=== PATIENT | male | born 1965 | race Caucasian/White ===

== ENCOUNTER → 2017-09-14 | Day surgery (SDC) | payer OTHER ==
[~2017-09-14] VITALS: Ht 182.9 cm; Wt 95.3 kg
[~2017-09-14] MED LIST: AMLODIPINE BESYL5 M1 PO; ATORVASTATIN CA10 M1 PO; DHEA50 MG PO; ENDOCET 5-3251 EACH PO; LISINOPRIL40 M1 PO; METFORMIN HCL500 M3 PO; ONDANSETRON HCL4 MG PO; PROBIOTIC1 EACH PO; VENLAFAXINE HC150 MG PO; VITAMIN C1000 M4 PO
--- NOTE | 2017-09-14 10:47 | ED GI/GU/ABDOMINAL COMPLAINT ---
History of Present Illness General Chief Complaint: Abdominal Pain/Flank Pain Stated Complaint: L SIDE ABD PAIN Source: patient, family Exam Limitations: no limitations Vital Signs & Intake/Output Vital Signs & Intake/Output ED Intake and Output 09/15 0000 09/14 1200 Intake Total 0 Output Total Balance 0 Intake, Oral 0 Patient 95.254 kg Weight Weight Reported by Patient Measurement Method Allergies Coded Allergies: No Known Allergies (09/14/17) Reconcile Medications Amlodipine Besylate 5 MG TABLET 1 TAB PO DAILY HTN (Reported) Atorvastatin Calcium 10 MG TABLET 1 TAB PO DAILY CHOLESTEROL (Reported) Lisinopril 40 MG TABLET 1 TAB PO DAILY HTN (Reported) Metformin HCl 500 MG TABLET 1 TAB PO DAILY DM (Reported) Venlafaxine HCl (Venlafaxine HCl ER) 150 MG CAP.ER.24H 1 CAP PO DAILY MENTAL HEALTH (Reported) Triage Note: 52 YO MALE TO TRIAGE FOR EVAL OF LLQ PAIN SINCE FRIDAY. STATES THE PAIN COMES AND GOES AND GETS VERY SHARP IN NATURE WHEN THE PAIN COMES. STATES HE WAS IN [place] AND CAME HOME LAST PM. STATES HE WENT TO THE HOSPITAL IN [facility] AND THEY SAID HE HAD AN ELVATED WBC AND AND US THAT SHOWED ?DIVERLITULITIS VS. CONSTIPATION. STATES HE HASNT HAD A BOWEL MOVMENT SINCE FRIDAY WHEN THE PAIN STARTED BUT STATES HE HASNT BEEN EATING OR DRINKING. STATES +NAUSEA. DENIES URIANRY S/S. Triage Nurses Notes Reviewed? yes HPI: 52M PMH HTN, HLD with 3 day history of severe intermittent LLQ pain. Was on vacation in [place] when it started, [facility] did ultrasound which was negative. Pain is 10/10, non-radiating, lasts for 30 min-hour, occurs several times per day. No prior history of similar. Denies fever, chills, n/v/d, constipation, chest pain, SOB, lightheadedness, abdominal pain, flank pain, dysuria, hematuria. Past History Travel History Traveled to [place] past 21 day No Medical History Any Pertinent Medical History? see below for history Cardiovascular: hypertension, hyperlipidemia Endocrine: diabetes Surgical History Surgical History: none Psychosocial History What is your primary language Romansh Tobacco Use: Never used Family History Hx Contributory? No Review of Systems Review of Systems Constitutional: Reports: no symptoms. EENTM: Reports: no symptoms. Respiratory: Reports: no symptoms. Cardiovascular: Reports: no symptoms. GI: Reports: no symptoms. Genitourinary: Reports: no symptoms. Musculoskeletal: Reports: no symptoms. Skin: Reports: no symptoms. Neurological/Psychological: Reports: no symptoms. Hematologic/Endocrine: Reports: no symptoms. Immunologic/Allergic: Reports: no symptoms. All Other Systems: Reviewed and Negative Physical Exam Physical Exam General Appearance: well developed/nourished, mild distress Head: atraumatic, normal appearance Eyes: Bilateral: normal appearance. Ears, Nose, Throat, Mouth: hearing grossly normal, moist mucous membrane Neck: normal inspection, supple, full range of motion Respiratory: normal breath sounds, no respiratory distress Cardiovascular: regular rate/rhythm Gastrointestinal: soft, non-tender Rectal: deferred Back: normal inspection, normal range of motion Extremities: normal range of motion Neurologic/Psych: awake, alert, oriented x 3, normal mood/affect Skin: intact, normal color, warm/dry Core Measures ACS in differential dx? No Sepsis Present: No Sepsis Focused Exam Completed? No Progress Differential Diagnosis: AAA, AMI, appendicitis, biliary colic, bowel obstruction , colon cancer, cholecystitis, diverticulitis, epididymitis, esophageal varices, gastritis, hepatitis, hernia, hemorrhoids, ischemic bowel, inflamm bowel dis, Izabela-Jesus tear, orchitis, pancreatitis, prostatitis, peptic ulcer, PUD/GERD, perforated viscous, pyelonephritis, SBO, STD, testicular torsion, ureterolithiasis, urinary retention, urethritis, UTI/pyelo Plan of Care: Laboratory Tests 09/14/17 1325: Lactic Acid Cancelled Spoke with Dr. Goff, who will take patient to OR for stone removal. Diagnostic Imaging: Viewed by Me: CT Scan. Discussed w/RAD: CT Scan. Radiology Impression: PATIENT: DENYS KELLY PRESENT AGE: 52 PATIENT ACCOUNT NO: [id number] : 65 LOCATION: [facility] ORDERING PHYSICIAN: Leobardo Reyes MD SERVICE DATE: 09/14/17 EXAM TYPE : CAT - CT ABD & PELVIS W/O IV CONTRAS EXAMINATION: CT ABDOMEN AND PELVIS WITHOUT CONTRAST CLINICAL INFORMATION: Left lower quadrant pain and constipation. Evaluate for diverticulitis or kidney stone. COMPARISON: None TECHNIQUE: Multidetector volumetric imaging was performed from the superior aspect of the liver through the pubic symphysis. Sagittal and coronal reformatted images were obtained on the technologist's workstation. DLP: 573 mGy -cm FINDINGS: LUNG BASES: The visualized lung bases are unremarkable. LIVER, GALLBLADDER, AND BILIARY TREE: The liver is normal in size, shape, and attenuation. No focal hepatic lesion or biliary ductal dilatation is present. The gallbladder is unremarkable with no evidence of radiopaque gallstones, gallbladder wall thickening, or obvious pericholecystic inflammatory changes. PANCREAS: Unremarkable. SPLEEN: Unremarkable. ADRENAL GLANDS: Unremarkable. KIDNEYS AND URETERS: The right kidney is normal in shape size and appearance. A 2 mm interpolar calcification is seen at the level of the papilla of the right mid kidney with no evidence of right-sided hydroureter or hydronephrosis. The left kidney is normal in shape and size with mild perinephric stranding compared to the contralateral side. Mild left hydroureteronephrosis is seen with periureteric soft tissue stranding. The hydroureter extends to the ureterovesical junction where there is obstruction of the ureter by a 2 mm calculus. BLADDER: Unremarkable. GASTROINTESTINAL TRACT: The stomach is nondistended. No evidence of small or large bowel obstruction. The appendix is normal. Moderate stool is seen in the colon predominantly on the right side. No evidence of diverticulosis or diverticulitis. ABDOMINAL WALL: No significant hernia is appreciated. LYMPH NODES: Normal. VASCULAR: Unremarkable. PELVIC VISCERA: The prostate and seminal vesicles are unremarkable. OSSEOUS STRUCTURES: Unremarkable. IMPRESSION: 1. Mild left hydroureteronephrosis secondary to acute obstruction by a 2 mm distal ureteral calculus immediately proximal to the ureterovesical junction. 2. Tiny nonobstructive right renal calculus. No evidence of right hydronephrosis. 3. No evidence of bowel wall thickening or diverticulitis. DICTATED BY: Arthur Hahn MD DATE/TIME DICTATED:09/14/171110 BLANCHING MACHINE OPERATOR:SHEFALI DATE/TIME TRANSCRIBED:09/14/171110 CONFIDENTIAL, DO NOT COPY WITHOUT APPROPRIATE AUTHORIZATION. <Electronically signed in Other Vendor System> SIGNED BY: Arthur Hahn MD 09/14/17 1123 Initial ED EKG: none Departure Departure Disposition: STILL A PATIENT Condition: Stable Clinical Impression Primary Impression: Ureterolithiasis Secondary Impressions: Obstructive uropathy Referrals: Imtiaz Omer MD (PCP/Family) Departure Forms: Customer Survey General Discharge Information OR/GI Note Spoke With: Ulises Goff MD ED Treatment Decision: DENYS KELLY requires urgent operative management or an emergent procedure that cannot be performed in the Emergency Room setting. Imtiaz Omer MD (PCP/Family) Departure Forms: Customer Survey General Discharge Information OR/GI Note Spoke With: Ulises Goff MD ED Treatment Decision: DENYS KELLY requires urgent operative management or an emergent procedure that cannot be performed in the Emergency Room setting.
[2017-09-14 11:05] LABS: ABSOLUTE BASOPHIL COUNT 0 /CUMM (0.0-0.2); ABSOLUTE EOSINOPHIL COUNT 0.1 /CUMM (0.0-0.7); ABSOLUTE GRANULOCYTE CT 7.5 /CUMM (1.4-6.5); ABSOLUTE LYMPH COUNT 2.3 /CUMM (1.2-3.4); ABSOLUTE MONOCYTE COUNT 1.7 /CUMM (0.10-0.60); BASOPHIL % 0.4 % (0.0-2.0); EOSINOPHIL % 0.9 % (0-5); GRANULOCYTE % 64.2 % (42.2-75.2); HEMATOCRIT 46.1 % (42-52); MEAN CORPUSCULAR HGB 29.7 PG (27.0-31.0); MEAN CORPUSCULAR VOLUME 87.3 FL (80.0-94.0); MEAN PLATELET VOLUME 6.4 FL (7.4-10.4); PLATELET COUNT 286 /CUMM (130-400); RBC DISTRIBUTION WIDTH 12.8 % (11.5-14.5); RED BLOOD CELL CT 5.28 /CUMM (4.70-6.10); WHITE BLOOD CELL COUNT 11.7 /CUMM (4.8-10.8)
--- NOTE | 2017-09-14 11:23 | CT SCAN REPORT ---
EXAMINATION: CT ABDOMEN AND PELVIS WITHOUT CONTRAST CLINICAL INFORMATION: Left lower quadrant pain and constipation. Evaluate for diverticulitis or kidney stone. COMPARISON: None TECHNIQUE: Multidetector volumetric imaging was performed from the superior aspect of the liver through the pubic symphysis. Sagittal and coronal reformatted images were obtained on the technologist's workstation. DLP: 573 mGy-cm FINDINGS: LUNG BASES: The visualized lung bases are unremarkable. LIVER, GALLBLADDER, AND BILIARY TREE: The liver is normal in size, shape, and attenuation. No focal hepatic lesion or biliary ductal dilatation is present. The gallbladder is unremarkable with no evidence of radiopaque gallstones, gallbladder wall thickening, or obvious pericholecystic inflammatory changes. PANCREAS: Unremarkable. SPLEEN: Unremarkable. ADRENAL GLANDS: Unremarkable. KIDNEYS AND URETERS: The right kidney is normal in shape size and appearance. A 2 mm interpolar calcification is seen at the level of the papilla of the right mid kidney with no evidence of right-sided hydroureter or hydronephrosis. The left kidney is normal in shape and size with mild perinephric stranding compared to the contralateral side. Mild left hydroureteronephrosis is seen with periureteric soft tissue stranding. The hydroureter extends to the ureterovesical junction where there is obstruction of the ureter by a 2 mm calculus. BLADDER: Unremarkable. GASTROINTESTINAL TRACT: The stomach is nondistended. No evidence of small or large bowel obstruction. The appendix is normal. Moderate stool is seen in the colon predominantly on the right side. No evidence of diverticulosis or diverticulitis. ABDOMINAL WALL: No significant hernia is appreciated. LYMPH NODES: Normal. VASCULAR: Unremarkable. PELVIC VISCERA: The prostate and seminal vesicles are unremarkable. OSSEOUS STRUCTURES: Unremarkable. IMPRESSION: 1. Mild left hydroureteronephrosis secondary to acute obstruction by a 2 mm distal ureteral calculus immediately proximal to the ureterovesical junction. 2. Tiny nonobstructive right renal calculus. No evidence of right hydronephrosis. 3. No evidence of bowel wall thickening or diverticulitis.
--- NOTE | 2017-09-14 11:50 | Cons- Urology ---
General Information and HPI Consulting Request Date of Consult: 09/14/17 Requested By: Eric, Reason for Consult: severe left renal colic uncontrolled by IV narcotics. N/V Source of Information: patient, old records Exam Limitations: no limitations History of Present Illness: 52 year old with left renal colic x 1 week while on vacation in [place]. Presents today with worsening pain, nausea, vomitting. Ct with obstructing stone and arf. for stent today as discussed with pt: including procedure with risks/benefits. Allergies/Medications Allergies: Coded Allergies: No Known Allergies (09/14/17) Home Med List: Amlodipine Besylate 5 MG TABLET 1 TAB PO DAILY HTN (Reported) Atorvastatin Calcium 10 MG TABLET 1 TAB PO DAILY CHOLESTEROL (Reported) Lisinopril 40 MG TABLET 1 TAB PO DAILY HTN (Reported) Metformin HCl 500 MG TABLET 1 TAB PO DAILY DM (Reported) Venlafaxine HCl (Venlafaxine HCl ER) 150 MG CAP.ER.24H 1 CAP PO DAILY MENTAL HEALTH (Reported) Current Medications: Current Medications Sig/Kristi Start time Last Medication Dose Route Stop Time Status Admin Ceftriaxone Sodium 1,000 MG ONCE ONE 09/14 1145 AC IV 09/14 1146 Ibuprofen 0 .STK-MED ONE 09/14 1104 DC PO Ibuprofen 400 MG ONCE ONE 09/14 1100 DC 05/ PO 09/14 1101 1100 Morphine Sulfate 0 .STK-MED ONE 09/14 1140 DC .ROUTE Morphine Sulfate 4 MG ONCE ONE 09/14 1130 DC IV 09/14 1131 Sodium Chloride 1,000 ML BOLUS ONE 09/14 1130 AC IV 09/14 1229 Past History Medical History Cardiovascular: hypertension, hyperlipidemia Endocrine: diabetes Psychosocial History Where Do You Live? Home Services at Home: None Primary Language: Czech Functional Ability ADLs Independent: dressing, eating, toileting, bathing. Ambulation: independent IADLs Independent: shopping, housework, finances, food prep, telephone, transportation , medication admin. Employment History Employment: Employed Profession/Employer: construction Retired? no Review of Systems Review of Systems Constitutional: Reports: see HPI, diaphoresis. EENTM: Denies: no symptoms. Cardiovascular: Denies: no symptoms. Respiratory: Denies: no symptoms. GI: Reports: abdominal pain, bloating. Genitourinary: Reports: see HPI. Musculoskeletal: Denies: no symptoms. Skin: Denies: no symptoms. Exam & Diagnostic Data Vital Signs and I&O Vital Signs Date Time Temp Pulse Resp B/P B/P Pulse O2 O2 Flow FiO2 Mean Ox Delivery Rate 09/14 1142 97.8 09/14 1129 Room Air Room Air 09/14 1019 97.8 82 18 146/80 98 Room Air Intake & Output 09/14 1600 09/14 0800 09/14 0000 09/13 1600 09/13 0800 09/13 0000 Intake Total 0 Output Total Balance 0 Intake, Oral 0 Patient 210 lb Weight Weight Reported by Patient Measurement Method Physical Exam General Appearance: well developed/nourished, severe distress Head: atraumatic Eyes: Bilateral: normal appearance. Ears, Nose, Throat: normal pharynx Neck: normal inspection Respiratory: normal breath sounds Cardiovascular: regular rate/rhythm Back: CVA tenderness (L) Extremities: normal inspection Skin: intact Reproductive: Normal male genitalia Last 24 Hours of Labs: Laboratory Tests 09/14 1049 Chemistry Sodium (137 - 145 mmol/L) 141 Potassium (3.5 - 5.1 mmol/L) 4.5 Chloride (98 - 107 mmol/L) 99 Carbon Dioxide (22 - 30 mmol/L) 29 Anion Gap (5 - 16) 12 BUN (9 - 20 mg/dL) 26 H Creatinine (0.7 - 1.2 mg/dL) 1.4 H Estimated GFR (>60 ml/min) 53 L BUN/Creatinine Ratio (7 - 25 %) 18.6 Glucose (65 - 99 mg/dL) 132 H Lactic Acid (0.7 - 2.1 mmol/L) 1.4 Calcium (8.4 - 10.2 mg/dL) 9.4 Total Bilirubin (0.2 - 1.3 mg/dL) 1.5 H AST (17 - 59 U/L) 18 ALT (21 - 72 U/L) 29 Alkaline Phosphatase (< 127 U/L) 49 Total Protein (6.3 - 8.2 g/dL) 8.1 Albumin (3.5 - 5.0 g/dL) 4.5 Globulin (1.9 - 4.2 gm/dL) 3.6 Albumin/Globulin Ratio (1.1 - 2.2 %) 1.3 Lipase (23 - 300 U/L) 224 Hematology CBC w Diff NO MAN DIFF REQ WBC (4.8 - 10.8 /CUMM) 11.7 H RBC (4.70 - 6.10 /CUMM) 5.28 Hgb (14.0 - 18.0 G/DL) 15.7 Hct (42 - 52 %) 46.1 MCV (80.0 - 94.0 FL) 87.3 MCH (27.0 - 31.0 PG) 29.7 MCHC (33.0 - 37.0 G/DL) 34.0 RDW (11.5 - 14.5 %) 12.8 Plt Count (130 - 400 /CUMM) 286 MPV (7.4 - 10.4 FL) 6.4 L Gran % (42.2 - 75.2 %) 64.2 Lymphocytes % (20.5 - 51.1 %) 19.9 L Monocytes % (1.7 - 9.3 %) 14.6 H Eosinophils % (0 - 5 %) 0.9 Basophils % (0.0 - 2.0 %) 0.4 Absolute Granulocytes (1.4 - 6.5 /CUMM) 7.5 H Absolute Lymphocytes (1.2 - 3.4 /CUMM) 2.3 Absolute Monocytes (0.10 - 0.60 /CUMM) 1.7 H Absolute Eosinophils (0.0 - 0.7 /CUMM) 0.1 Absolute Basophils (0.0 - 0.2 /CUMM) 0 Imaging Results: PATIENT: DENYS KELLY PRESENT AGE: 52 PATIENT ACCOUNT NO: [id number] : 65 LOCATION: [facility] ORDERING PHYSICIAN: Leobardo Reyes MD SERVICE DATE: 09/14/17 EXAM TYPE: CAT - CT ABD & PELVIS W/O IV CONTRAS EXAMINATION: CT ABDOMEN AND PELVIS WITHOUT CONTRAST CLINICAL INFORMATION: Left lower quadrant pain and constipation. Evaluate for diverticulitis or kidney stone. COMPARISON: None TECHNIQUE: Multidetector volumetric imaging was performed from the superior aspect of the liver through the pubic symphysis. Sagittal and coronal reformatted images were obtained on the technologist's workstation. DLP: 573 mGy-cm FINDINGS: LUNG BASES: The visualized lung bases are unremarkable. LIVER, GALLBLADDER, AND BILIARY TREE: The liver is normal in size, shape, and attenuation. No focal hepatic lesion or biliary ductal dilatation is present. The gallbladder is unremarkable with no evidence of radiopaque gallstones, gallbladder wall thickening, or obvious pericholecystic inflammatory changes. PANCREAS: Unremarkable. SPLEEN: Unremarkable. ADRENAL GLANDS: Unremarkable. KIDNEYS AND URETERS: The right kidney is normal in shape size and appearance. A 2 mm interpolar calcification is seen at the level of the papilla of the right mid kidney with no evidence of right-sided hydroureter or hydronephrosis. The left kidney is normal in shape and size with mild perinephric stranding compared to the contralateral side. Mild left hydroureteronephrosis is seen with periureteric soft tissue stranding. The hydroureter extends to the ureterovesical junction where there is obstruction of the ureter by a 2 mm calculus. BLADDER: Unremarkable. GASTROINTESTINAL TRACT: The stomach is nondistended. No evidence of small or large bowel obstruction. The appendix is normal. Moderate stool is seen in the colon predominantly on the right side. No evidence of diverticulosis or diverticulitis. ABDOMINAL WALL: No significant hernia is appreciated. LYMPH NODES: Normal. VASCULAR: Unremarkable. PELVIC VISCERA: The prostate and seminal vesicles are unremarkable. OSSEOUS STRUCTURES: Unremarkable. IMPRESSION: 1. Mild left hydroureteronephrosis secondary to acute obstruction by a 2 mm distal ureteral calculus immediately proximal to the ureterovesical junction. 2. Tiny nonobstructive right renal calculus. No evidence of right hydronephrosis. 3. No evidence of bowel wall thickening or diverticulitis. Assessment/Plan Assessment/Plan pt with severe renal colic: ARF and obstructing stone: here for admission and stent. Copies To: Ulises Goff MD Consult Acknowledgment - Thank you for your consult request. Attending MD Review Statement Attending Statement Attending MD Statement: examined this patient, discuss w/resident/PA/MEMBERSHIP SALES ADVISOR Attending Assessment/Plan: ARF with obstructing stone: for stent now.
[2017-09-14 12:19] VITALS: BP 132/78
--- NOTE | 2017-09-14 15:51 | Operative Report ---
Operative/Inv Procedure Report Surgery Date: 09/14/17 Name of Procedure: cystoscopy: LEFT stent insertion with retrograde-fluoro Pre-Operative Diagnosis: left severe colic, hydro, ureter stone. Post-Operative Diagnosis: same Estimated Blood Loss: scant Surgeon/Junior Graphic Designer: MD [place], Ulises-urology Anesthesia: moderate sedation Implants: [id number] stent Complications: none Condition: improved-now pain free Operative/Procedure Note Note: The patient was taken to the operating room placed OR table in supine position. Timeout was performed, with the patient awake, in order to confirm anesthesia, and other pertinent perioperative information. After adequate anesthesia and antibiotics the patient was then placed lithotomy stirrups, draped and prepped in the usual surgical fashion. A 22 Peruvian cystoscope sheath with 30 angle lens was inserted into the urethra, subsequently into the bladder without difficulty. Upon thorough and systematic surveillance, the bladder was noted to be free of tumor, free of stone. Both ureteral orifices were in their orthotopic position with clear efflux from the right side. The left orifice was intubated with a tiger tail catheter. Retrograde pyelogram, with fluoroscopy, was gently performed in order to confirm hydronephrosis, and a 9 mm left ureter filling defect, consistent with stone, and proximal hydronephrosis. The retrograde pyelogram was also helpful in order to map the anatomy of the left ureter and kidney using fluoroscopy. The tiger tail catheter was then removed. The left orifice was then intubated with a 0.035 Glidewire, which was advanced into the left ureter, and renal pelvis, without difficulty, bypassing the left ureter stone. Over this Glidewire a 6 X 24 Bard onlay stent was rail-roaded into the left ureter without difficulty. With the proximal coil of the stent noted in the left renal pelvis, and the distal coil in the bladder, the Glidewire was removed. The stent remained in proper place, confirmed cystoscopically, and fluoroscopically. The bladder was then drained via the cystoscope, which was then removed without difficulty. All sponege needle and instrument count were correct at the end of the case. The patient tolerated the procedure well, and was taken to recovery room in satisfactory condition. Discharge Disposition: PACU CC: Ulises Goff MD
--- NOTE | 2017-09-14 16:06 | RADIOLOGY REPORT ---
EXAMINATION: CR ABDOMEN/INTRAOPERATIVE FLUOROSCOPY CLINICAL INDICATION: Cystogram and left stent placement. COMPARISON: CT scan of the abdomen and pelvis dated 09/14/2017 TECHNIQUE/FINDINGS: Fluoroscopic equipment was dedicated to the operating room for the performance of an intraoperative procedure. Several (6) spot films were acquired and are archived in PACS. Please refer to operative notes for procedural detail. FLUOROSCOPY TIME: 0.3 minutes. IMPRESSION: Administrative dictation for intraoperative fluoroscopy and image archiving in PACS. Please refer to operative notes for details.
== END ==
LOC: ERH 10:16 → STS 12:35 → ERH 15:30
PROVIDERS: Internal Medicine
DX: N13.2 Hydronephrosis with renal and ureteral calculous obstruction (principal); E11.9 Type 2 diabetes mellitus without complications; Z79.84 Long term (current) use of oral hypoglycemic drugs; I10 Essential (primary) hypertension
CPT/HCPCS: 74018; 74176; 96374; 96375; C2617; J0696; J2250

== ENCOUNTER → 2017-09-16 | Day surgery (SDC) | payer OTHER ==
[~2017-09-16] VITALS: Ht 182.9 cm; Wt 95.3 kg
[~2017-09-16] MED LIST changes: -DHEA50 MG PO; -ENDOCET 5-3251 EACH PO; -ONDANSETRON HCL4 MG PO; -PROBIOTIC1 EACH PO; -VITAMIN C1000 M4 PO
--- NOTE | 2017-09-16 09:57 | Operative Report ---
Operative/Inv Procedure Report Surgery Date: 09/16/17 Name of Procedure: left ureter ESWL, cysto-left stent removal. FLuoroscopy Pre-Operative Diagnosis: left ureter stone: left stent Post-Operative Diagnosis: same Estimated Blood Loss: scant Surgeon/Replanting Machine Crew: Ulises Goff MD Anesthesia: moderate sedation Specimens: left stent Complications: none Operative/Procedure Note Note: The patient was taken to the operating room and placed on the ESWL table in supine position. Timeout was performed, with the patient awake, in order to confirm correct patients identity, procedure, laterality, anesthesia, and other pertinent perioperative information. After adequate anesthesia and antibiotics, the patient was then positioned so that the LEFT Flank was overlying the ESWL table's cut-out, above the concussion dome of the shockwave generator. Fluroscopy, as well as renal US, was used to locate the stone, and LEFT stent. Using fluoroscopy with AP, and oblique views, the position of the left renal stone was confirmed and optimized in the c-arm crosshairs. The stone, previously in the ureter, and manipulated into the left renal pelvis, was approximately 9 mm in size, and was visible on fluroscopy. Renal ultrasound was also performed on the left side, confirming the presence of the left stone, and no hydronephrosis, with normal parenchyma, and no solid tumor. Flurosocpy was used in an AP and oblique views to maximize the position of the stone for ESWL. After optimized positioning, ESWL was initiated at low power levels. After noting the patient's tolerance to the shockwaves, the power was maximized. The renal stone was noted to bounce/move with each shockwave with real-time renal US visualization. Toward the end of the procedure, the composition of the left stones had changed significantly, indicating the breaking of the left renal stone. A total of 2500 shockwaves were delivered to the stone. The patient was then placed in a frog-leg position, draped and prepped in the usual surgical fashion. A well lubricated, 22 Libyan cystoscope sheath with 30 angle lens was inserted without difficulty. On entering the bladder the bladder was noted to be free of tumor, and free of stone. Both ureteral orifices were in their ortotopic positions. The left stent was seen in proper place protruding through the left ureter orifice. Using the alligator forcep, under direct visualization, the left stent was grasped. The cystoscope along with entire left stent was then gently removed without difficulty. All sponge, needle, and instrument count were correct at the end of the case. The patient the tolerated both the left cysto/stent removal, and left ESWL procedures well. The patient was awakened, then taken to recovery in satisfactory condition via stretcher. The pt. was dischared with pain meds, diet orders, and intructions to catch fragments with straining the urine. The patient was given requisition to have follow-up renal ultrasound and KUB in 2-4 weeks, prior to follow-up visit in my office. Findings: 9mm stone in left renal pelvis shattered at 2500 Discharge Disposition: Same Day Admissions CC: [place] ZURITA,Ulises
== END ==
LOC: STS 02:24
DX: N20.1 Calculus of ureter (principal); E11.9 Type 2 diabetes mellitus without complications; Z79.84 Long term (current) use of oral hypoglycemic drugs; I10 Essential (primary) hypertension

== ENCOUNTER → 2017-10-16 | Day surgery (SDC) | payer OTHER ==
[~2017-10-16] MED LIST changes: +DHEA50 MG PO; +ENDOCET 5-3251 EACH PO; +ONDANSETRON HCL4 MG PO; +PROBIOTIC1 EACH PO; +VITAMIN C1000 M4 PO
--- NOTE | 2017-10-16 11:56 | Operative Report ---
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 Estimated Blood Loss: scant Surgeon/Stock Buyer: Ulises Goff MD Anesthesia: laryngeal mask airway Drains: 18 fr henderson Complications: none Operative/Procedure Note Note: The patient was taken to the operating room and placed on the OR table in supine position. Timeout was performed, with the patient awake, in order to confirm correct identity, procedure, laterality, antibiotics, anesthesia, and other pertinent marlene-operative information. After adequate anesthesia and antibiotics , the patient was then placed in lithotomy stirrups, draped and prepped in the usual surgical fashion. A 22 Citizen [place] cystoscope sheath with 30 angle lens was inserted without difficulty. Upon entering the bladder, the bladder was noted to be free of tumor, and free of stone. Using a ureteral open-ended stent, starting with the left ureter, a retrograde pyelograms was perfomed, with fluoroscopy, revealing no filling defects, with no left hydronephrosis. The left side was noted to have quick and complete drainage of the contrast material, after the removal of the ureter open-ended stent. The same retrograde procedure was performed on the right side, again revealing mild mid ureter filling defect consistent with stricture, and brisk efflux of contrast material. As the patient has been c/o severe bilateral renal colic, and demand to proceed with ureteroscopy diagnostic/treatment of potential stone, the plan for bilateral ureterscopy proceeded. Holmium/YAG laser was on standby and turned on. The left orifice was intubated with a 0.035 gluide wire and advanced to the right renal pelvis without difficulty. Using the gluide wire, and fluoroscope, the flexible uretersocope was placed over the gluide wire and advanced to the right renal pelvis with fluoroscopic guidance. Thorough calycoscopy and pyeloscopy confirms NO stone, and NO tumor in the renal calyxes, nor renal pelvis. At this point, the ureteroscope was then gently retracted from the left renal pelvis without difficulty, and no other stone, nor any tumor, was visualized along the left ureter with direct visualization. A similar procedure was performed on the right side ureter and kidney: The 22 [place] cystoscope sheath with 30 angle lens was re-inserted into the bladder without difficulty. Using a ureteral open-ended stent inserted into the right ureter orifice, a retrograde pyelograms was perfomed, with fluoroscopy. This revealed only the mild right stricture, with quick and adequate drainage of the contrast, after the removal of the ureter open-ended stent. However, as the pt has been c/o severe colic bilat., the plan for bilat. ureterscopy proceeded. Holmium/YAG laser was on standby. The right orifice was intubated with a 0.035 gluide wire and advanced to the right renal pelvis without difficulty. Using the gluide wire, and fluoroscope, the flexible uretersocope was rail-roaded over the gluide wire, and advanced to the right renal pelvis, with fluoroscopic guidance. Thorough calycoscopy, and pyeloscopy confirms no stone in the calyx, nor renal pelvis. The ureteroscope was then gently retracted from the right renal pelvis without difficulty. Visualizing the entire ureter, there were no additional findings, except for the stricture, and will proceed with stent placement on the right. The Yag Laser on standby, was now powered down. The 22 [place] cystoscope sheath with a 30 angle lens was then reinserted into the bladder without difficulty. The right orifice was intubated with a 0.035 wire, which was advanced into the right renal pelvis without difficulty. A 6 x 24 Bard on lay stent was railroaded over the Glidewire, and advanced into the right ureter without difficulty. With the proximal coil visualized fluoroscopically in the renal pelvis, and distal coil seen in the bladder cystoscopically, the Glidewire was removed, and the stent remained in proper place. The bladder was then drained via the cystoscope.. All sponge needle and instrument count were correct at the end of the case. The patient tolerated the procedure well was then taken to the recovery room in satisfactory condition. The patient is discharged home with antibiotics and pain meds from the , after discussing the findings with the patient. Findings: no tumor, no stone, no hydronephrosis bilaterally: right mid-ureter stricture ( mild) Discharge Disposition: PACU CC: Ulises Goff MD
--- NOTE | 2017-10-17 09:37 | RADIOLOGY REPORT ---
EXAMINATION: CR ABDOMEN/INTRAOPERATIVE FLUOROSCOPY CLINICAL INDICATION: Bilateral ureteroscopy with retrograde pyelogram. COMPARISON: Renal ultrasound dated 10/01/2017. CT scan of the abdomen and pelvis dated 09/14/2017. TECHNIQUE/FINDINGS: Fluoroscopic equipment was dedicated to the operating room for the performance of an intraoperative procedure. Several (3) spot films were acquired and are archived in PACS. Please refer to operative notes for procedural detail. FLUOROSCOPY TIME: 0.6 minutes. IMPRESSION: Administrative dictation for intraoperative fluoroscopy and image archiving in PACS. Please refer to operative notes for details.
== END ==
LOC: STS 10-14 07:00
DX: N13.5 Crossing vessel and stricture of ureter without hydronephrosis (principal); I10 Essential (primary) hypertension
CPT/HCPCS: 74018; 93005; 93010; C2617; J1100; J2250; J2405

== ENCOUNTER → 2017-10-28 | Day surgery (SDC) | payer OTHER ==
[~2017-10-28] VITALS: Ht 182.9 cm; Wt 88.9 kg
--- NOTE | 2017-10-29 16:38 | RADIOLOGY REPORT ---
EXAMINATION: CR ABDOMEN/INTRAOPERATIVE FLUOROSCOPY CLINICAL INDICATION: Right ureteroscopy. COMPARISON: Renal ultrasound dated 10/22/2017. TECHNIQUE/FINDINGS: Fluoroscopic equipment was dedicated to the operating room for the performance of an intraoperative procedure. Several (3) spot films were acquired and are archived in PACS. Please refer to operative notes for procedural detail. FLUOROSCOPY TIME: 7 seconds. IMPRESSION: Administrative dictation for intraoperative fluoroscopy and image archiving in PACS. Please refer to operative notes for details.
--- NOTE | 2017-10-30 10:33 | Operative Report ---
Operative/Inv Procedure Report Surgery Date: 10/28/17 Name of Procedure: cystoscopy: right stent removal: right flex. ureteroscopy; fluoroscopy Pre-Operative Diagnosis: right stent with stone Post-Operative Diagnosis: no tumor/stone Estimated Blood Loss: manuela Surgeon/Mental Health Specialist: Ulises Goff MD Anesthesia: laryngeal mask airway Specimens: right stent Complications: none Operative/Procedure Note Note: Patient was taken to the operating room placed on the OR table in supine position. Timeout was performed, with the patient awake, in order to confirm the patient's correct identity, laterality, antibiotics, and other pertinent perioperative information. After adequate anesthesia and antibiotics, the patient was then placed in lithotomy stirrups, draped and prepped in the usual surgical fashion. A 22 [place] cystoscope sheath with 30 angle lens was inserted without difficulty. Upon entering the bladder, the bladder was noted to be free of tumor free of stone. Both orifices were in their orthotopic position. The right ureteral orifice was noted to have a stent in place. An alligator forceps, through the cystoscope was then used in order to grasp the right stent, and the cystoscope, along with entire stent was removed without difficulty. The scope was then reinserted into the bladder. The right orifice was intubated with a 0.035 safety gluidewire was inserted into the right ureter and renal pelvic, with placement confimed by fluroloscopy. An open-ended ureteral access stent was inserted over the Glidewire and retrograde was performed. After removing the ureteral access stent, and leaving the Glidewire behind, a flexible ureteroscope was rail-roaded over the gluidewire, in order to advance the ureteroscope into the right ureter easily. The flexible ureteroscope was then guided into the remaining calyxes, and right renal pelvis, to confirm no additional stones, nor tumor. The entire length of the ureter was also visualize in order to confim no significantly sized stone framents, nor tumor was seen on the way out. All sponge needle and instrument count were correct at the end of the case. The patient tolerated this bilateral procedure well, and was taken to the recovery room in satisfactory condition. Instructions for follow imaging studies and appointment in a few week's time was discussed with the patient, along with written post-op instructions. Discharge Disposition: PACU CC: Ulises Goff MD
== END ==
LOC: STS 02:05
DX: Z87.442 Personal history of urinary calculi (principal); N23 Unspecified renal colic; Z87.891 Personal history of nicotine dependence; E11.9 Type 2 diabetes mellitus without complications; Z79.84 Long term (current) use of oral hypoglycemic drugs; I10 Essential (primary) hypertension
CPT/HCPCS: 74018; J0131; J2250; J3490